=== PATIENT | male | born 1980 | race Caucasian/White ===

== ENCOUNTER 2017-02-23 02:24 | Emergency (ER) | payer SELFPAY ==
[~2017-02-23] VITALS: Ht 182.9 cm; Wt 89.8 kg
[~2017-02-23 02:24] MED LIST: FLEXERIL PO; KEFLEX500 MG PO; LORTAB 5/500 TA1 TA1 PO; MEDROL PO; MOTRIN600 MG PO; NAPROXEN PO; ORUDIS75 M1 DOB; VICODIN 5/500 T1 TAB PO
== END 2017-02-23 03:08 | disposition home or self-care (01) ==
LOC: SED 02:24
DX: B35.9 Dermatophytosis, unspecified (principal); Z79.899 Other long term (current) drug therapy
CPT/HCPCS: 99283